=== PATIENT | male | born 1970 | race Caucasian/White ===

== ENCOUNTER 2018-06-22 08:07 | Emergency (ER) | payer SELFPAY ==
--- NOTE | 2018-06-22 09:23 | EDM.PDOCBH ---
ED HPI GENERAL MEDICAL PROBLEM - General Chief Complaint: Behavioral/Psych Stated Complaint: ANXIETY AND DEPRESSION Time Seen by Provider: 06/22/18 08:14 Source of Information: Reports: Patient History Limitations: Reports: No Limitations - History of Present Illness INITIAL COMMENTS - FREE TEXT/NARRATIVE: The patient presents with anxiety and depression. This has been an on going problems for months but worse the past few weeks. The patient says he is anxious about many things. If he has some pain somewhere, he will worry that it is something worse then what it is. Like if he has abdominal pain, he will worry that it is cancer. He is worried about finances. He works in the [email or web address] industry and he is worried about the ups and downs of that industry. His position was terminated on Saturday and that made things much worse. Then he told a family member that he knows how to stop this. He is not suicidal now. He has not been sleeping or eating. He is on lexapro 20mg daily and went to the walk in clinic a few days ago and got some hydroxyzine and that did help him sleep last night. He has no medical problems and no pain. He does not abuse alcohol or drugs. Onset: Gradual Duration: Week(s): Severity: Moderate Improves with: Reports: None Worsens with: Reports: None Associated Symptoms: Reports: No Other Symptoms - Related Data Allergies Allergy/AdvReac Type Severity Reaction Status Date / Time No Known Allergies Allergy Verified 06/22/18 08:12 Home Meds: Home Meds Escitalopram Oxalate [Lexapro] 30 mg PO DAILY #45 tablet 06/22/18 [Rx] Escitalopram [Lexapro] 20 mg PO DAILY 06/22/18 [History] LORazepam [Ativan] 1 mg PO BID #14 tab 06/22/18 [Rx] Rosuvastatin [Crestor] 10 mg PO DAILY 06/22/18 [History] hydrOXYzine pamoate [Hydroxyzine Pamoate] 25 mg PO QID 06/22/18 [History] Past Medical History Cardiovascular History: Reports: High Cholesterol Psychiatric History: Reports: Anxiety, Depression Social & Family History - Tobacco Use Smoking Status *Q: Never Smoker - Recreational Drug Use Recreational Drug Use: No ED ROS GENERAL - Review of Systems Review Of Systems: See Below Constitutional: Reports: No Symptoms HEENT: Reports: No Symptoms Respiratory: Reports: No Symptoms Cardiovascular: Reports: No Symptoms Endocrine: Reports: No Symptoms GI/Abdominal: Reports: No Symptoms : Reports: No Symptoms Musculoskeletal: Reports: No Symptoms ED EXAM, BEHAVIORAL HEALTH - Physical Exam Exam: See Below Exam Limited By: No Limitations General Appearance: Alert, No Apparent Distress Ears: Normal External Exam Nose: Normal Inspection Head: Atraumatic, Normocephalic Neck: Normal Inspection Respiratory/Chest: No Respiratory Distress, Lungs Clear, Normal Breath Sounds Cardiovascular: Regular Rate, Rhythm, No Edema, No Murmur GI/Abdominal: Soft, Non-Tender, No Organomegaly, No Mass Back Exam: Normal Inspection Extremities: Normal Inspection COURSE, BEHAVIORAL HEALTH COMP - Course Vital Signs: Last Vital Signs Temp 98.7 F 06/22/18 08:14 Pulse 89 06/22/18 08:14 Resp 16 06/22/18 08:14 BP 149/93 H 06/22/18 08:14 Pulse Ox 98 06/22/18 08:14 Re-Assessment/Re-Exam: I called Dr Mosher and he will talk to the patient. Dr Mosher talked with the patient and he agrees he is not suicidal at this time. He wanted me to go up with his lexapro to 30mg and given him ativan BID for 2 weeks. Departure - Departure Time of Disposition: 09:55 Disposition: Home, Self-Care 01 Condition: Good Clinical Impression: Anxiety, Depressive disorder - Discharge Information *PRESCRIPTION DRUG MONITORING PROGRAM REVIEWED*: No *COPY OF PRESCRIPTION DRUG MONITORING REPORT IN PATIENT HECTOR: No Prescriptions: Escitalopram Oxalate [Lexapro] 30 mg PO DAILY #45 tablet LORazepam [Ativan] 1 mg PO BID #14 tab Referrals: Dolores Guerrero IMMIGRATION OFFICER [Primary Care Provider] - Forms: ED Department Discharge Additional Instructions: Take 1 1/2 pills or 30mg of the lexapro daily. Keep taking the hydroxyzine as prescribed. Take ativan 1mg 2 times per day for 2 weeks. Follow up with Dolores in 1 week. Please return or call if you have anymore concerns.
--- NOTE | 2018-06-23 12:55 | CONS ---
CONSULTING PHYSICIAN: Patricio Mosher MD DATE OF CONSULTATION: 06/22/2018 This is a 60-minute emergency room telemedicine event. Site where the services are provided is [facility] in [place], [place]. Site where the services are provided from our office is in [facility]. Length of time for this 60-minute emergency room telemedicine event is 60 minutes. IDENTIFICATION: The patient is a 48-year-old male, who is seen for psychiatric evaluation after presenting to the [facility] Emergency Room in [place], [place] and is seen per the request of staff emergency room physician, Dr. Martinez, and his treatment team. CHIEF COMPLAINT: "Employment ended for me. My job was terminated." HISTORY OF PRESENT ILLNESS: The patient is a 48-year-old male, who had been working out in the [employer] and recently found out that his job was terminated. The patient states that he has been "depressed and anxious" particularly since he received this news. He states that he also generally struggles with depression and anxiety overall, but it has just been more so since he received this news. He states he has been having problems with sleep. His appetite has been down. He has been very depressed and very anxious. He states "my history has always been very anxious. I worry about everything." He states "if I get a headache, I think I have a brain tumor or if I get stomachache, I think I have cancer" in general. He states he tends to be very somatic, but he denies any compulsive behaviors. He just states "I have always been high strung and wired." Right now, he is having racing thoughts and ruminations particularly about his job loss and then the financial difficulties will follow if he does not land soon with another job. He states "I got a family" and this is very distressing for him. He denies any illicit substance use or excessive alcohol use complicating the clinical picture. He denies that he is suicidal or homicidal. He denies any psychotic, delusional, or paranoid symptoms. He states he has been on Lexapro for a couple of years and this medication has generally helped him. He states he went into a walk-in clinic the other day and he was placed on hydroxyzine 25 mg q.i.d. p.r.n. Since he has been taking this, this has helped somewhat, so he sort of likes this medication also. MEDICATIONS: At the time of presentation: 1. Lexapro 20 mg q.a.m. 2. Hydroxyzine 25 mg q.i.d. 3. Crestor. ALLERGIES: No known drug allergies. PAST MEDICAL HISTORY: History of high cholesterol. REVIEW OF SYSTEMS: Aside from endocrine, all other major organ systems are negative at this point in time for acute difficulties or complications. FAMILY PSYCHIATRIC AND CD HISTORY: The patient reports he has had a sister who has had CD issues in the past, but that has been resolved. PAST PSYCHIATRIC AND CD HISTORY: The patient denies any previous psychiatric hospitalizations or chemical dependency treatments. Denies any previous suicide attempts, self-injurious behaviors, or eating disorder history. Besides the Lexapro and now hydroxyzine, he denies any past psychiatric medication history. Primary outpatient care provider is Dolores Guerrero. SOCIAL HISTORY: The patient was born in [place] and raised in [place], [place]. He is the oldest of 5 siblings, having 3 sisters and 1 brother. The patient's parents were throughout his childhood and adolescence. Father worked down in the [employer] and mother in an [employer]. The patient's highest level of education is some college. He has about 3 years of college. 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 He has been x1 for 15 years. He has 2 children from the marriage. His is a homemaker. He lives in [place] with his family. Denies any prior service or any current legal difficulties. He was raised [employer]ist in terms of his piedad formation. He enjoys sports in his spare time, particularly baseball. He enjoys spending time with his family. MENTAL STATUS EXAM: The patient is a 48-year-old white male, in no apparent distress. Speech is of regular rate and rhythm. The patient is cognitively oriented. Psychomotor activity is within normal limits. There are no abnormal motor movements or tics observed. Gait is steady. Station is normal. Mood is depressed and anxious. Affect is consistent with stated mood, but cooperative overall for the purposes of the emergency room consult. There is no behavioral or stated evidence of acute suicidal or homicidal ideation or acute psychotic, delusional, or paranoid symptoms. Thought processes are significant for racing thoughts and ruminations; however, there are no manic symptoms or loose associations evident. Judgment and insight appear unimpaired at this point in time. Motivation for help is good. VITALS: 149/93, 89, respirations are within normal limits, and 98.7 degrees for temperature. IMPRESSION: [place] I: 1. Major depressive disorder, F32.2. 2. Anxiety disorder, not otherwise specified, F41.9. [place] II: None. [place] III: History of high cholesterol. [place] IV: Severe. [place] V: 60. PLAN: 1. Begin a trial of Ativan short-term 1 mg b.i.d. scheduled for 2 weeks and give the patient 1 refill with this prescription and this is for acute anxiety reduction. 2. Increase the patient's Lexapro from 20 to 30 mg q.a.m. to help with symptoms of depression. 3. Continue hydroxyzine 25 mg q.i.d., also for anxiety reduction. 4. Recommend the patient to follow up with Outpatient Psychiatry or his primary care provider to assess his overall function and efficacy of his newly initiated and adjusted psychiatric medication regimen. 5. The patient is apprised of benefits and side effects of his newly initiated and adjusted psychiatric medication regimen. He acknowledges his understanding of these facts and had no further questions by the end of the interview session. 6. Recommend also counseling for psychosocial issues and this is per the patient's discretion. 7. We will continue to follow up with the patient on an as-needed basis while he remains in the emergency room. 8. We will follow up with the patient sooner if any complications in the interim. 9. Crisis plan is in place. WARREN /[id number]
== END 2018-06-22 10:10 | disposition home or self-care (01) ==
LOC: JD.ED 08:07
DX: F41.9 Anxiety disorder, unspecified (principal); F32.9 Major depressive disorder, single episode, unspecified; E78.00 Pure hypercholesterolemia, unspecified; Z79.899 Other long term (current) drug therapy
CPT/HCPCS: 99284

== ENCOUNTER 2024-06-01 03:36 | Emergency (ER) | payer BC, MEDICAID ==
[2024-06-01] MEDS: LORazepam 1 MG Tab PO ONE (04:17)
[2024-06-01 04:30] LABS: BASOPHILS ABSOLUTE AUTO 0.1 K/mm3 (0.0-0.2); BASOPHILS PERCENT AUTO 0.7 % (0.0-1.0); EOSINOPHILS ABSOLUTE AUTO 0.3 K/mm3 (0.0-0.4); HEMATOCRIT 49.3 % (42.0-52.0); HEMOGLOBIN 16.2 gm/dl (14.0-18.0); IMMATURE GRAN ABSOLUTE AUTO 0.02 K/mm3 (0.00-0.05); IMMATURE GRAN PERCENT AUTO 0.3 % (0.0-0.4); LYMPHOCYTES ABSOLUTE AUTO 2.2 K/mm3 (1.0-4.8); LYMPHOCYTES PERCENT AUTO 31.8 % (24.0-44.0); MEAN CORPUSCULAR HEMOGLOBIN 29.1 pg (28.0-32.0); MEAN CORPUSCULAR HGB CONC 32.9 g/dl (32.0-36.0); MEAN CORPUSCULAR VOLUME 88.5 fl (83.0-99.0); MEAN PLATELET VOLUME 9.5 fl (9.4-12.4); MONOCYTES ABSOLUTE AUTO 0.9 K/mm3 (0.0-0.8); MONOCYTES PERCENT AUTO 12.5 % (0.0-8.0); NEUTROPHILS ABSOLUTE AUTO 3.5 K/mm3 (1.8-7.7); NEUTROPHILS PERCENT AUTO 50.7 % (41.0-71.0); PLATELET COUNT,PLT 245 K/mm3 (150-400); RED BLOOD CELL COUNT 5.57 M/mm3 (4.52-5.90); WHITE BLOOD CELL COUNT,WBC 6.96 K/mm3 (3.9-11.3)
[2024-06-01 04:57] LABS: A/G RATIO 0.9 (1-2); ALBUMIN 3.5 g/dl (3.4-5.0); ANION GAP 10.7 (5-15); BILIRUBIN TOTAL 0.5 mg/dL (0.2-1.0); EST CRCL DRUG DOSING (CG) 106.09 mL/min; MAGNESIUM 1.9 mg/dL (1.8-2.4); POTASSIUM,K 3.7 mEq/L (3.5-5.1); PROTEIN TOTAL,TP 7.4 g/dl (6.4-8.2)
== END 2024-06-01 05:51 | disposition home or self-care (01) ==
LOC: JD.ED 03:36
DX: F41.9 Anxiety disorder, unspecified (principal); E78.00 Pure hypercholesterolemia, unspecified; Z79.899 Other long term (current) drug therapy
CPT/HCPCS: 36415; 71046; 80053; 83735; 84484; 85025; 93005; 99285; A9270; 93010; 99284